=== PATIENT | male | born 1995 | race Caucasian/White ===

== ENCOUNTER 2017-05-06 15:19 | Emergency (ER) | payer OTHER ==
[~2017-05-06] VITALS: Ht 180.3 cm; Wt 138.8 kg
[2017-05-06 15:29] VITALS: Ht 180.3 cm; Wt 138.8 kg
[2017-05-06 17:07] VITALS: BP 130/84
== END 2017-05-06 17:07 | disposition home or self-care (01) ==
LOC: ED 15:19
DX: B34.9 Viral infection, unspecified (principal); K52.9 Noninfective gastroenteritis and colitis, unspecified; J45.909 Unspecified asthma, uncomplicated

== ENCOUNTER 2017-07-30 13:58 | Emergency (ER) | payer OTHER ==
[~2017-07-30] VITALS: Ht 180.3 cm; Wt 141.1 kg
[2017-07-30 14:00] VITALS: Ht 180.3 cm; Wt 141.1 kg
[2017-07-30 15:24] VITALS: BP 128/84
== END 2017-07-30 15:25 | disposition home or self-care (01) ==
LOC: ED 13:58
DX: T78.40XA Allergy, unspecified, initial encounter (principal); R06.02 Shortness of breath; X58.XXXA Exposure to other specified factors, initial encounter
CPT/HCPCS: J2930; J7613; J7644; Q0162; Q0163

== ENCOUNTER 2018-10-06 09:38 | Emergency (ER) | payer OTHER ==
[~2018-10-06] VITALS: Ht 182.9 cm; Wt 144.7 kg
[2018-10-06 09:47] VITALS: Ht 182.9 cm; Wt 144.7 kg
[2018-10-06 11:28] VITALS: BP 135/87
== END 2018-10-06 11:28 | disposition home or self-care (01) ==
LOC: ED 09:38
DX: J45.901 Unspecified asthma with (acute) exacerbation (principal)
CPT/HCPCS: J7512; J7620